=== PATIENT | male | born 1970 | race Two or more races ===

== ENCOUNTER 2021-07-26 17:08 | Inpatient (IN) | payer OTHER ==
[~2021-07-26] VITALS: Ht 175.3 cm; Wt 85.3 kg
[2021-08-06] MEDS ORDERED: MELATONIN5 M2 PO (11:04)
[2021-08-06] MEDS ORDERED: VITAMIN D3125 MC2 PO (11:04)
[2021-08-06] MEDS ORDERED: ZINC SULFATE50 M1 PO (11:04)
[2021-08-06] MEDS ORDERED: MEDROLPACK PO (11:04)
[2021-08-06] MEDS ORDERED: VITAMIN C500 M1 PO (11:04)
== END 2021-08-06 11:39 | disposition home or self-care (01) | DRG 177 ==
LOC: ER 17:08 → ICU 07-27 08:59 → MEDJ 07-27 08:59 → ICU 07-27 18:38 → MEDJ 08-02 19:09
PROVIDERS: ADMIT Internal Medicine; ATTEND Internal Medicine
PROC: 0W9B30Z Drainage of Left Pleural Cavity with Drainage Device, Percutaneous Approach (ICD-10-PCS; principal; 2021-07-27)
PROC: 8E0ZXY6 Isolation (ICD-10-PCS; 2021-07-27)
PROC: 4A033R1 Measurement of Arterial Saturation, Peripheral, Percutaneous Approach (ICD-10-PCS; 2021-07-27)
PROC: XW033E5 Introduction of Remdesivir Anti-infective into Peripheral Vein, Percutaneous Approach, New Technology Group 5 (ICD-10-PCS; 2021-07-27)
PROC: 3E0F7SF Introduction of Other Gas into Respiratory Tract, Via Natural or Artificial Opening (ICD-10-PCS; 2021-07-27)
PROC: 4A12X4Z Monitoring of Cardiac Electrical Activity, External Approach (ICD-10-PCS; 2021-07-27)
DX: U07.1 COVID-19 (principal); J12.82 Pneumonia due to coronavirus disease 2019; J93.11 Primary spontaneous pneumothorax; J98.11 Atelectasis; R09.02 Hypoxemia; R43.2 Parageusia; Z28.82 Immunization not carried out because of caregiver refusal